=== PATIENT | male | born 1985 | race Caucasian/White ===

== ENCOUNTER 2024-05-17 15:08 | Emergency (ER) | payer OTHER ==
[2024-05-17 15:12] VITALS: BP 135/88; PULSE 77; RESP 18; TEMP 98.2; BMI 43.0
[2024-05-17] MEDS ORDERED: LIDOCAINE HCL 2% (20ML MULTI-DOSE VIAL) ONE (16:48)
[2024-05-17] MEDS ORDERED: DIPHTH,PERTUSS(ACELL),TET 0.5 ML DISP.SYRIN IM ONE (16:49)
[2024-05-17] MEDS: DIPHTH,PERTUSS(ACELL),TET 0.5 ML DISP.SYRIN IM ONE (16:53)
[2024-05-17] MEDS: LIDOCAINE HCL 2% (50ML VIAL) SQ ONE (16:55)
== END 2024-05-17 17:39 | disposition home or self-care (01) ==
LOC: JERFT 15:08
PROC: 0XQVXZZ Repair Right Little Finger, External Approach (ICD-10-PCS; principal; 2024-05-17)
PROC: 3E0234Z Introduction of Serum, Toxoid and Vaccine into Muscle, Percutaneous Approach (ICD-10-PCS; 2024-05-17)
DX: S61.216A Laceration without foreign body of right little finger without damage to nail, initial encounter (principal); W26.8XXA Contact with other sharp object(s), not elsewhere classified, initial encounter; Z23 Encounter for immunization
CPT/HCPCS: 90715; 99284-25